=== PATIENT | male | born 1990 | race Hispanic/Latino ===

== ENCOUNTER 2019-12-29 23:25 | Emergency (ER) | payer SELFPAY ==
[2019-12-29 23:31] VITALS: BP 141/90; PULSE 70; RESP 18; TEMP 36.2; O2SAT 100
--- NOTE | 2019-12-30 02:32 | ED.WOUNDLAC ---
HPI - Wound/Laceration General Chief Complaint: Wound/Laceration Stated Complaint: finger laceration Time Seen by Provider: 12/30/19 01:42 Source: patient Mode of arrival: ambulatory Limitations: no limitations History of Present Illness HPI narrative: This patient is a right hand dominant male who presents for evaluation of left hand laceration. He states he accidentally cut himself with a blade 3 hours ago. He has a laceration on his thumb, and he reports only minimal pain. He has not numbness or tingling. He also suffered superficial sosa to the back of his left hand at work. He is unsure of his last tetanus. Related Data Home Medications Medication Instructions Recorded Confirmed No Home Medications 12/30/19 12/30/19 Allergies Allergy/AdvReac Type Severity Reaction Status Date / Time No Known Allergies Allergy Verified 12/30/19 02:42 Review of Systems Review of Systems: All systems reviewed & are unremarkable except as noted in HPI and below PMFSH Past Medical History Medical History (Updated 12/30/19 @ 02:38 by Yuli Isabel MD) Patient denies medical problems Surgical History Surgical History (Updated 12/30/19 @ 02:35 by Yuli Isabel MD) No significant past surgical history Social History Social History (Updated 12/30/19 @ 02:35 by Yuli Isabel MD) Smoking status: Never smoker Exam Const: General: no acute distress and alert Orientation/consciousness: patient oriented x3 HENMT: Head: atraumatic Face and sinus: face symmetric Resp: Effort & Inspection: normal respiratory effort Extrem: Other: left dorsum hand with superficial sosa no blistering, there is also a 1 cm laceration of dorsum of thumb no bleeding, with some subcutaneous fat exposed. Psych: Mental Status: mental status grossly normal Affect: normal affect Course Vital Signs Vital signs: Vital Signs Temperature 97.2 F L 12/29/19 23:31 Pulse Rate 70 12/29/19 23:31 Respiratory Rate 18 12/29/19 23:31 Blood Pressure 141/90 H 12/29/19 23:31 Pulse Oximetry 100 12/29/19 23:31 Temperature 97.2 F L 12/29/19 23:31 Pulse Rate 70 12/29/19 23:31 Respiratory Rate 14 12/30/19 03:02 Blood Pressure 141/90 H 12/29/19 23:31 Pulse Oximetry 100 12/29/19 23:31 Procedures Laceration Laceration 1: Date: 12/30/19 Time: 02:36 Site: hand Side (If applicable): left Size (cm): 1 Description: linear Depth: simple, single layer Pre-repair: irrigated ====== Skin Level ====== Skin layer closed with: prolene Size (cm): 4-0 Number of sutures: 1 Technique: horizontal mattress ====== Subcutaneous Layer ====== ====== Muscle Layer ====== ====== Tendon Layer ====== Dressing: applied antibiotic ointment Discharge Plan Discharge Clinical Impression: Laceration of finger of left hand Qualifiers: Encounter type: initial encounter Finger: thumb Damage to nail status: without damage Foreign body presence: without foreign body Qualified Code(s): S61.012A - Laceration without foreign body of left thumb without damage to nail, initial encounter Patient Disposition: Home, Self-Care Condition: Stable Instructions: Care For Your Stitches (ED), Laceration (ED) Additional Instructions: Keep you wound clean with soap and water, and keep dry. Wear gloves or bandage to keep clean if you are doing diry work. You will need to have stitch removed in 10days. Patient Language: Japanese Prescriptions: No Action No Home Medications RF: 0 Follow-up/Referrals: PHYSICIAN,DUPLEX TRIMMER [Primary Care Provider] - Roland Corbin MD [Physician] -
[2019-12-30] MEDS: TETANUS,DIPHTHERIA,AC PERTUSSIS ADULT (0.5 ML) BOOSTRIX IM (02:41)
[2019-12-30] MEDS: LIDOCAINE HCL 1% LOCAL INJ 20 ML VIAL INFILTRATE (02:45)
[2019-12-30 03:02] VITALS: RESP 14
== END 2019-12-30 03:03 | disposition home or self-care (01) ==
PROVIDERS: Emergency Provider General Practice
DX: S61.012A Laceration without foreign body of left thumb without damage to nail, initial encounter (principal); W26.8XXA Contact with other sharp object(s), not elsewhere classified, initial encounter; Z23 Encounter for immunization
CPT/HCPCS: 12001; 90471; 90715; 99282